=== PATIENT | male | born 1960 | race Caucasian/White ===

== ENCOUNTER 2016-10-08 03:23 | Observation (INO) ==
--- NOTE | 2016-10-08 03:29 | Emergency Department Note ---
Disposition Clinical Impression: CVA (cerebral vascular accident) Disposition: Admitted As Inpatient Condition: Good Referrals: NO,PCP [Non-Partnered Physician] - Forms: ED Satisfaction Letter General Adult HPI - General Chief complaint: ED Neuro Symptoms/Deficit Stated complaint: left arm feels funny Time Seen by Provider: 10/08/16 03:25 - Related Data Allergies Allergy/AdvReac Type Severity Reaction Status Date / Time No Known Allergies Allergy Verified 10/08/16 03:25 Course Vital Signs Temperature 98.0 F 10/08/16 03:26 Pulse Rate 104 10/08/16 03:26 Respiratory Rate 18 10/08/16 03:26 Blood Pressure 140/104 10/08/16 03:26 O2 Sat by Pulse Oximetry 95 10/08/16 03:26 Temperature 98.0 F 10/08/16 03:26 Pulse Rate 67 10/08/16 05:13 Respiratory Rate 16 10/08/16 05:13 Blood Pressure 145/100 10/08/16 05:13 O2 Sat by Pulse Oximetry 96 10/08/16 05:13 Oxygen Delivery Oxygen Delivery Room Air Medical Decision Making - Lab Data Result diagrams: 10/08/16 03:20 10/08/16 03:20 Lab Results 10/08/16 10/08/16 10/08/16 Range/Units 03:20 03:20 03:20 WBC 8.5 (4.3-11.1) K/mcL RBC 4.43 (4.19-5.50) M/mcL Hgb 14.4 (12.9-16.9) g/dL Hct 43.4 (37.5-50.1) % MCV 98.0 (83.0-100.0) fL MCH 32.5 (28.0-33.3) pg MCHC 33.2 (31.6-35.5) g/dL RDW 12.1 (11.5-14.5) % Plt Count 201 (140-400) K/mcL MPV 12.3 (9.4-12.4) fL Immature Gran % 0.5 (0-4) % Seg Neutrophils % 64.5 % Lymphocytes % 21.3 % Monocytes % 10.5 % Eosinophils % 2.6 % Basophils % 0.6 % Neutrophils # 5.5 (1.6-8.9) K/mcL Lymphocytes # 1.8 (0.6-4.6) K/mcL Monocytes # 0.9 (0.0-1.3) K/mcL Eosinophils # 0.2 (0.0-0.6) K/mcL Basophils # 0.1 (0.0-0.2) K/mcL PT 11.1 (9.4-12.1) Seconds INR 1.0 APTT 25.6 L (26.0-36.0) Seconds Sodium 139 (136-145) mEq/L Potassium 4.0 (3.5-4.5) mEq/L Chloride 105 (98-109) mEq/L Carbon Dioxide 24 (19-29) mEq/L BUN 16 (8-26) mg/dL Creatinine 0.86 (0.72-1.25) mg/dL Est GFR ( Amer) > 60 (> 60) Est GFR (Non-Af Amer) > 60 (> 60) BUN/Creatinine Ratio 19 (6-26) Glucose 79 (70-99) mg/dL POC Glucose (58-89) Calculated Osmolality 288 (280-300) Calcium 9.4 (8.6-10.8) mg/dL Troponin I (0-0.03) ng/mL 10/08/16 10/08/16 Range/Units 03:20 03:34 WBC (4.3-11.1) K/mcL RBC (4.19-5.50) M/mcL Hgb (12.9-16.9) g/dL Hct (37.5-50.1) % MCV (83.0-100.0) fL MCH (28.0-33.3) pg MCHC (31.6-35.5) g/dL RDW (11.5-14.5) % Plt Count (140-400) K/mcL MPV (9.4-12.4) fL Immature Gran % (0-4) % Seg Neutrophils % % Lymphocytes % % Monocytes % % Eosinophils % % Basophils % % Neutrophils # (1.6-8.9) K/mcL Lymphocytes # (0.6-4.6) K/mcL Monocytes # (0.0-1.3) K/mcL Eosinophils # (0.0-0.6) K/mcL Basophils # (0.0-0.2) K/mcL PT (9.4-12.1) Seconds INR APTT (26.0-36.0) Seconds Sodium (136-145) mEq/L Potassium (3.5-4.5) mEq/L Chloride (98-109) mEq/L Carbon Dioxide (19-29) mEq/L BUN (8-26) mg/dL Creatinine (0.72-1.25) mg/dL Est GFR ( Amer) (> 60) Est GFR (Non-Af Amer) (> 60) BUN/Creatinine Ratio (6-26) Glucose (70-99) mg/dL POC Glucose 91 H (58-89) Calculated Osmolality (280-300) Calcium (8.6-10.8) mg/dL Troponin I 0.00 (0-0.03) ng/mL Critical Care Time Critical Care Time: Yes Total Critical Care Time: 45 Attestation: Patient presented with acute strokelike symptoms. He required telemedicine neurology consultation. TPA considered but not recommended by the neurologist. Attestation Statement - Attestation Attestation: I examined this patient and my medical decision-making was reviewed with the HAND BINDER CUTTER/PA/Advanced Practice Nurse/Resident Physician. I agree with the documented findings, disposition and treatment plan as described except to the extent set forth below. Kidp-yc-bidw time provided Patient presents with facial droop and left upper extremity numbness that started 2 hours prior to arrival while he was watching TV. He does have an identifiable facial droop on exam. Stroke alert activated. NIH 9
--- NOTE | 2016-10-08 03:36 | Emergency Department Note ---
Disposition Clinical Impression: CVA (cerebral vascular accident) Qualifiers: CVA mechanism: unspecified Qualified Code(s): I63.9 - Cerebral infarction, unspecified Disposition: Admitted As Inpatient Condition: Good Referrals: NO,PCP [Non-Partnered Physician] - Forms: ED Satisfaction Letter Neuro HPI - General Chief Complaint: ED Neuro Symptoms/Deficit Stated Complaint: left arm feels funny Time Seen by Provider: 10/08/16 03:25 Source: patient, EMS Limitations: no limitations Nursing Notes Reviewed: Yes Vital Signs Reviewed: Yes - History of Present Illness HPI Narrative: 56-year-old male with a history of COPD presents to the emergency department with abrupt onset left arm numbness and weakness as well as facial droop. He was watching television around 1:30 AM and had acute onset symptoms. He states his face feels funny in his arm feels weak on the left. No history of CVA in the past. No history of arrhythmias. He takes no anticoagulants. Denies any history of heart disease. He continues to smoke. Denies any abrupt headache, visual changes or injuries. Denies any alcohol use. Denies any abdominal pain , nausea or vomiting. - Related Data Allergies/Adverse Reactions: Allergies Allergy/AdvReac Type Severity Reaction Status Date / Time No Known Allergies Allergy Verified 10/08/16 03:25 All systems ED: reviewed and negative except as stated. Eyes: Denies: vision change Cardiovascular: Denies: chest pain, syncope Respiratory: Denies: cough, dyspnea Gastrointestinal: Denies: abdominal pain, nausea, vomiting Musculoskeletal: Denies: back pain, neck pain Neurological: Reports: weakness, numbness. Denies: headache Past Medical History - Past Medical History Medical history: Reports: COPD, seizures Psychiatric history: Reports: no psych history - Social History Smoking Status: Current every day smoker Smokeless Tobacco Status: No Alcohol use: Reports: none Drug use: Reports: none Physical Exam General: Thin-appearing male but awake, alert and in no distress Cardiovascular: Regular rate and rhythm. S1, S2. No murmurs, rubs or gallops. Respiratory: Breath sounds clear bilaterally. No wheezing, rales or rhonchi. No resp distress Abdomen: Soft, nontender. No guarding, rebound or rigidity. Eyes: Pupils equally round and reactive to light, extraocular muscles intact, conjunctiva clear, no disconjugate gaze, nystagmus or strabismus PRIETO: Normocephalic, no signs of head injury. Neuro: Alert and oriented 3, no visual deficits, 4/5 left upper extremity strength with some neglect and decreased sensation 4/5 left lower extremity strength with some decreased sensation. 5/5 right upper and lower extremity strength. Significant left-sided facial droop without dysarthria. Forehead is spared. See NIHSS for full evaluation Musculoskeletal: No joint tenderness or swelling Skin: No lesions. No diaphoresis. Normal turgor. Normal color Psych: Appropriate - General Limitations: no limitations General appearance: alert, in no apparent distress Course - Reevaluation(s) Reevaluation #1: Patient has already been taken to CT scan, NIHSS 9 with left sided weakness and facial droop. Reevaluation #2: Received a call from [facility] neurologist and discussed the case. He will come in on the [employer] Telestroke machine. Patient back from CT scan. CT available but not read yet by radiology. I did review this and saw no obvious bleeding however he does have more atrophy than I would expect to see in a 56- year-old. Reevaluation #3: The neurologist at [facility] recommended no TPA because he is not convinced of time of onset. Patient states he had been laying on his couch since 6 PM and had not gotten up to walk or move around. The neurologist states these CVAs are painless and could have occurred before he really noticed the weakness therefore patient is outside of the TPA window and does not recommend TPA. He does however recommend a CTA of the head and neck to look for a proximal lesion that could be a candidate for percutaneous intervention. We will order this study stat. Additional Reevaluation(s): CTA of the head shows no large vessel or proximal occlusions. CTA of the neck shows right sided 50% carotid stenosis. Patient's symptoms have mildly improved with slightly less facial droop and slightly improved movement of the left arm and leg. We offered to transfer patient to [facility], stroke center but he would rather stay here in the evaluated and treated. He states he has family in this area and does not want to go to [place]. Discussed with on-call hospitalist, Dr. Stewart who accepts for admission Vital Signs Temperature 98.0 F 10/08/16 03:26 Pulse Rate 104 10/08/16 03:26 Respiratory Rate 18 10/08/16 03:26 Blood Pressure 140/104 10/08/16 03:26 O2 Sat by Pulse Oximetry 95 10/08/16 03:26 Temperature 98.0 F 10/08/16 03:26 Pulse Rate 67 10/08/16 05:13 Respiratory Rate 16 10/08/16 05:13 Blood Pressure 145/100 10/08/16 05:13 O2 Sat by Pulse Oximetry 96 10/08/16 05:13 Oxygen Delivery Oxygen Delivery Room Air Neuro Symptoms/Deficit - Lab Data Result diagrams: 10/08/16 03:20 10/08/16 03:20 Lab Results 10/08/16 10/08/16 10/08/16 Range/Units 03:20 03:20 03:20 WBC 8.5 (4.3-11.1) K/mcL RBC 4.43 (4.19-5.50) M/mcL Hgb 14.4 (12.9-16.9) g/dL Hct 43.4 (37.5-50.1) % MCV 98.0 (83.0-100.0) fL MCH 32.5 (28.0-33.3) pg MCHC 33.2 (31.6-35.5) g/dL RDW 12.1 (11.5-14.5) % Plt Count 201 (140-400) K/mcL MPV 12.3 (9.4-12.4) fL Immature Gran % 0.5 (0-4) % Seg Neutrophils % 64.5 % Lymphocytes % 21.3 % Monocytes % 10.5 % Eosinophils % 2.6 % Basophils % 0.6 % Neutrophils # 5.5 (1.6-8.9) K/mcL Lymphocytes # 1.8 (0.6-4.6) K/mcL Monocytes # 0.9 (0.0-1.3) K/mcL Eosinophils # 0.2 (0.0-0.6) K/mcL Basophils # 0.1 (0.0-0.2) K/mcL PT 11.1 (9.4-12.1) Seconds INR 1.0 APTT 25.6 L (26.0-36.0) Seconds Sodium 139 (136-145) mEq/L Potassium 4.0 (3.5-4.5) mEq/L Chloride 105 (98-109) mEq/L Carbon Dioxide 24 (19-29) mEq/L BUN 16 (8-26) mg/dL Creatinine 0.86 (0.72-1.25) mg/dL Est GFR ( Amer) > 60 (> 60) Est GFR (Non-Af Amer) > 60 (> 60) BUN/Creatinine Ratio 19 (6-26) Glucose 79 (70-99) mg/dL POC Glucose (58-89) Calculated Osmolality 288 (280-300) Calcium 9.4 (8.6-10.8) mg/dL Troponin I (0-0.03) ng/mL 10/08/16 10/08/16 Range/Units 03:20 03:34 WBC (4.3-11.1) K/mcL RBC (4.19-5.50) M/mcL Hgb (12.9-16.9) g/dL Hct (37.5-50.1) % MCV (83.0-100.0) fL MCH (28.0-33.3) pg MCHC (31.6-35.5) g/dL RDW (11.5-14.5) % Plt Count (140-400) K/mcL MPV (9.4-12.4) fL Immature Gran % (0-4) % Seg Neutrophils % % Lymphocytes % % Monocytes % % Eosinophils % % Basophils % % Neutrophils # (1.6-8.9) K/mcL Lymphocytes # (0.6-4.6) K/mcL Monocytes # (0.0-1.3) K/mcL Eosinophils # (0.0-0.6) K/mcL Basophils # (0.0-0.2) K/mcL PT (9.4-12.1) Seconds INR APTT (26.0-36.0) Seconds Sodium (136-145) mEq/L Potassium (3.5-4.5) mEq/L Chloride (98-109) mEq/L Carbon Dioxide (19-29) mEq/L BUN (8-26) mg/dL Creatinine (0.72-1.25) mg/dL Est GFR ( Amer) (> 60) Est GFR (Non-Af Amer) (> 60) BUN/Creatinine Ratio (6-26) Glucose (70-99) mg/dL POC Glucose 91 H (58-89) Calculated Osmolality (280-300) Calcium (8.6-10.8) mg/dL Troponin I 0.00 (0-0.03) ng/mL - EKG Data EKG results narrative: EKG shows a sinus rhythm with a rate of [address] elevation or depression. Intervals within normal limits. Normal axis and normal R-wave progression. No ischemic T-wave changes. Previous EKG on 11/02/2009 shows similar wave morphology NIH Stroke Scale - Level of Consciousness LOC: Alert - LOC Questions LOC Questions: Answers both correctly - LOC Commands LOC Commands: Performs both correctly - Best Gaze Best Gaze: Normal - Visual Visual: No visual loss - Facial Palsy Facial Palsy: Partial, total, or near-total paralysis of lower face - Motor Arms Motor Arm-Left: Drift, does NOT hit bed Motor Arm-Right: No drift for 10 seconds - Motor Legs Motor Leg-Left: Drift, does NOT hit bed Motor Leg-Right: No drift for 5 seconds - Limb Ataxia Limb Ataxia: Present in TWO limbs - Sensory Sensory: Mild to moderate loss, "not as sharp" - Best Language Best Language: No aphasia - Dysarthria Dysarthria: Mild, slurs some words - Extinction and Inattention Extinction and Inattention: Inattention or extinction in ONE modality - NIHSS Total Score NIHSS Total Score: 9 TPA Checklist - LKW: 3-4.5 hrs Add. Contraindications Patient/family understanding: The patient/family members have been counseled and understood the risk, benefit , and alternatives of treatment.
[2016-10-08 03:52] LABS: Basophils # 0.1 K/mcL (0.0-0.2); Basophils % 0.6 %; Eosinophils # 0.2 K/mcL (0.0-0.6); Eosinophils % 2.6 %; Hematocrit 43.4 % (37.5-50.1); Immature Granulocytes % 0.5 % (0-4); Lymphocytes # 1.8 K/mcL (0.6-4.6); Lymphocytes % 21.3 %; Mean Corpuscular HGB Conc 33.2 g/dL (31.6-35.5); Mean Corpuscular Hemoglobin 32.5 pg (28.0-33.3); Mean Platelet Volume 12.3 fL (9.4-12.4); Monocytes # 0.9 K/mcL (0.0-1.3); Monocytes % 10.5 %; Neutrophils # 5.5 K/mcL (1.6-8.9); Platelet Count 201 K/mcL (140-400); Red Blood Count 4.43 M/mcL (4.19-5.50); Red Cell Distribution Width 12.1 % (11.5-14.5); Segmented Neutrophils % 64.5 %
[2016-10-08] MEDS ORDERED: Alteplase (Activase) 6 MG in EMPTY BAG 1 EACH IVP ONE (03:54)
[2016-10-08] MEDS ORDERED: ALTEPLASE IVPB ONE (03:54)
[2016-10-08 03:55] LABS: Hemoglobin 14.4 g/dL (12.9-16.9)
[2016-10-08 04:00] LABS: Activated Partial Thrombo Time 25.6 Seconds (26.0-36.0)
[2016-10-08 04:04] LABS: BUN/Creatinine Ratio 19 (6-26); Blood Urea Nitrogen 16 mg/dL (8-26); Carbon Dioxide 24 mEq/L (19-29); Chloride 105 mEq/L (98-109); Glucose 79 mg/dL (70-99); Osmolality,Calculated 288 (280-300); Prothrombin Time 11.1 Seconds (9.4-12.1); Sodium 139 mEq/L (136-145); eGFR For African Americans > 60 (> 60); eGFR For Non-African Americans > 60 (> 60)
[2016-10-08 04:11] LABS: Calcium 9.4 mg/dL (8.6-10.8)
[2016-10-08] MEDS ORDERED: Aspirin 325 MG TABLET PO ONE (05:48)
[2016-10-08] MEDS ORDERED: Naloxone 0.4 MG/ML INJ IVP PRN (10:36)
[2016-10-08] MEDS ORDERED: Ondansetron ODT 4 MG TAB.RAPDIS SL PRN (10:36)
[2016-10-08] MEDS ORDERED: Acetaminophen 325 MG TABLET PO PRN (10:36)
--- NOTE | 2016-10-08 11:26 | Internal Med History&Physical ---
<Caryn Naik - Last Filed: 10/08/16 12:41> Date of Encounter: 10/08/16 Time of Encounter: 11:22 Assessment and Plan (1) CVA (cerebral vascular accident) Current visit: Yes Status: Acute Patient presented with left-sided weakness and left-sided facial droop. He was not a TPA candidate. Left-sided weakness has resolved, left-sided facial droop persists. CT of the head showed no acute intracranial abnormality. CTA of the head and neck showed no large vessel or proximal occlusions, right-sided 50% carotid stenosis. 325 mg of aspirin given Aspirin 81 mg daily, Lipitor 40 mg at bedtime Lipid panel with morning labs Continuous panel monitor MRI of the head and brain without contrast Echocardiogram Neurology consulted, spoke with Dr. Franco, who will see patient. Qualifiers: CVA mechanism: unspecified Qualified Code(s): I63.9 - Cerebral infarction, unspecified (2) Seizure disorder Current visit: Yes Status: Acute Patient reports he has seizures once or twice a year for the last 10 years, and takes antiepileptic medication. He does not recall his medication, we are [facility] the [facility] Patient reports last seizure was about 2 months ago. We will continue home dose of medications, seizure precautions. (3) Hypertension Current visit: Yes Status: Acute Patient's blood pressure has been running 140s to 150s over 100 since arrival. Patient reports he takes blood pressure medication, but does not recall what he takes. Here in the process of obtaining list from the [place], we will continue home doses of medications. Qualifiers: Hypertension type: essential hypertension Qualified Code(s): I10 - Essential (primary) hypertension (4) COPD (chronic obstructive pulmonary disease) Current visit: Yes Status: Chronic Patient denies any increased shortness of breath or coughing. He is not in an exacerbation. Albuterol inhaler every 4 hours when necessary Budesonide formoterol twice a day Qualifiers: COPD type: unspecified COPD Qualified Code(s): J44.9 - Chronic obstructive pulmonary disease, unspecified (5) Smoker Current visit: Yes Status: Acute Patient smokes 1PPD. Discussed smoking cessation and encouraged patient to quit. Smoking cessation education ordered. Nicotine patch ordered. (6) DVT prophylaxis Current visit: Yes Status: Acute anti-embolic stockings lovenox 40mg SQ daily Internal Medicine - H&P: HPI Chief complaint: left sided weakness Admitted From: Emergency Dept Plans for Post Hospital Care: Home History of present illness: Mr. Bassett is a 56 year old male with COPD, hypertension, and seizure disorder presented to the emergency department early this morning after developing sudden onset of left-sided weakness and facial droop. Reports that he was laying on the couch and when he went to get up he noticed that his left arm was weak, patient noted to have left arm and left leg weakness and left facial droop. He denies any headache, lightheadedness, vision changes, sensation of tingling, chest pain, palpitations, increased shortness of breath. Patient was evaluated in the emergency department and the [facility] stroke medicine team was called at [facility], they felt patient was not a TPA candidate as patient's onset could have been earlier while he was laying down and not moving for a long period prior to discovering his weakness. Labs are grossly normal troponin negative at 0.00. CT of the head showed no acute intracranial abnormality. [facility] telemedicine recommended CTA of the head and neck which showed no large vessel or proximal occlusions, and right-sided 50% carotid stenosis. On exam, patient has equal strength bilaterally, improved from his presentation at the ER. He does have a persistent left-sided facial droop. Speech is fluid, cranial nerves are intact, no pronator drift, normal Romberg. Heart has regular rate and rhythm, lungs are clear bilaterally to auscultation. Past Med Surg Social Fam HX - Past Medical History Medical history: COPD, hypertension, seizures Psychiatric history: no psych history - Past Surgical History Surgical History: no surgical history - Social History Smoking Status: Current every day smoker (40 pack year history) Smokeless Tobacco Status: No Alcohol use: none Drug use: none - Family History Mother Living Status: Age at : 83 Hx Family Cardiac Disorders: Yes Father Living Status: Age at : 66 Cause of : Cancer Hx Family Cancer: Yes Internal Medicine - H&P: Meds Albuterol Sulfate [Albuterol Inhaler] 2 puff IH Q6HR PRN 10/08/16 [History] Budesonide/Formoterol 160/4.5 [Symbicort 160/4.5] 2 puff IH BIDR 10/08/16 [ History] Cyanocobalamin (Vitamin B-12) [Vitamin B-12] 1,000 mcg SL DAILY 10/08/16 [ History] Magnesium Gluconate 250 mg PO DAILY 10/08/16 [History] Permethrin [Elimite] 1 appl TP AD PRN 10/08/16 [History] Potassium Chloride [Klor-Con 10] 20 meq PO BID 10/08/16 [History] hydrOXYzine HCl [Hydroxyzine HCl] 25 mg PO TID 10/08/16 [History] Allergies No Known Allergies Allergy (Verified 10/08/16 03:25) All Systems PM: A 10-system review of systems was performed and is negative for pertinent findings except as documented above in the HPI. - Constitutional Constitutional: no chills, no fever(s), no night sweats - EENT Eyes: no change in vision, no discharge, no pain, no photophobia Ears: no ear discharge, no ear pain, no tinnitus Nose, mouth and throat: no dysphagia, no nasal discharge, no neck pain, no sore throat - Cardiovascular Cardiovascular ROS IM: no chest pain, no diaphoresis, no dyspnea, no lightheadedness, no palpitations, no syncope - Respiratory Respiratory: no cough, no dyspnea, no wheezing, no excessive phlegm production - Gastrointestinal Gastrointestinal: no abdominal pain, no diarrhea, no hematemesis, no hematochezia, no melena, no nausea, no vomiting - Musculoskeletal Musculoskeletal ROS IM: no numbness, no tingling - Integumentary Integumentary IM: no rash, no unusual bruising - Neurological Neurological ROS: focal weakness (left sided), no confusion, no convulsions, no numbness, no tingling, no tremor(s) - Hematologic/Lymphatic Hematologic/Lymphatic: no easy bruising - Constitutional Vitals: Temp Pulse Resp BP Pulse Ox 98.2 F 79 16 140/101 98 10/08/16 07:39 10/08/16 07:39 10/08/16 07:39 10/08/16 07:39 10/08/16 07:39 General appearance: Present: A&O X 3, pleasant, no acute distress - Head Head exam: Present: atraumatic, normocephalic - Eye Eye exam: Present: PERRL, conjuntiva pink, sclera anicteric Pupils: Present: PERRL - Neck Neck exam general surgery: Present: supple, trachea midline. Absent: lymphadenopathy - Respiratory Respiratory exam: Present: CTAB. Absent: accessory muscle use, rales, rhonchi, wheezes - Cardiovascular Cardiovascular exam: Present: RRR, +S1, +S2. Absent: diastolic murmur, gallop, rubs, systolic murmur - GI/Abdominal GI/Abdominal exam: Present: normal bowel sounds, soft, no peritoneal signs. Absent: distended, tenderness - Extremities Exam Extremities exam: Present: warm, radial pulses palpable and symetrical. Absent : calf tenderness, cyanotic, pedal edema - Neurological Exam Neurological exam: Present: CN II-XII intact, oriented X3, no focal deficits, facial droop. Absent: pronater drift, speech deficit - Expanded Neurological Exam Cranial Nerves: EOM's intact PM: Normal, gag reflex PM: Normal, nystagmus PM: Normal, tongue deviation PM: Normal Cerebellar function: finger to nose: Normal, heel to pereira: Normal, Romberg: Normal Neuro motor strength exam: LUE: 5, RUE: 5, LLE: 5, RLE: 5 - Skin Skin exam: Present: dry, intact Internal Med - H&P Results - Labs CBC & Chem 7: 10/08/16 03:20 10/08/16 03:20 Labs: All Lab Results (24 Hours) 10/08/16 10/08/16 10/08/16 Range/Units 03:20 03:20 03:20 WBC 8.5 (4.3-11.1) K/mcL RBC 4.43 (4.19-5.50) M/mcL Hgb 14.4 (12.9-16.9) g/dL Hct 43.4 (37.5-50.1) % MCV 98.0 (83.0-100.0) fL MCH 32.5 (28.0-33.3) pg MCHC 33.2 (31.6-35.5) g/dL RDW 12.1 (11.5-14.5) % Plt Count 201 (140-400) K/mcL MPV 12.3 (9.4-12.4) fL Immature Gran % 0.5 (0-4) % Seg Neutrophils % 64.5 % Lymphocytes % 21.3 % Monocytes % 10.5 % Eosinophils % 2.6 % Basophils % 0.6 % Neutrophils # 5.5 (1.6-8.9) K/mcL Lymphocytes # 1.8 (0.6-4.6) K/mcL Monocytes # 0.9 (0.0-1.3) K/mcL Eosinophils # 0.2 (0.0-0.6) K/mcL Basophils # 0.1 (0.0-0.2) K/mcL PT 11.1 (9.4-12.1) Seconds INR 1.0 APTT 25.6 L (26.0-36.0) Seconds Sodium 139 (136-145) mEq/L Potassium 4.0 (3.5-4.5) mEq/L Chloride 105 (98-109) mEq/L Carbon Dioxide 24 (19-29) mEq/L BUN 16 (8-26) mg/dL Creatinine 0.86 (0.72-1.25) mg/dL Est GFR ( Amer) > 60 (> 60) Est GFR (Non-Af Amer) > 60 (> 60) BUN/Creatinine Ratio 19 (6-26) Glucose 79 (70-99) mg/dL POC Glucose (58-89) Calculated Osmolality 288 (280-300) Calcium 9.4 (8.6-10.8) mg/dL Troponin I (0-0.03) ng/mL 10/08/16 10/08/16 Range/Units 03:20 03:34 WBC (4.3-11.1) K/mcL RBC (4.19-5.50) M/mcL Hgb (12.9-16.9) g/dL Hct (37.5-50.1) % MCV (83.0-100.0) fL MCH (28.0-33.3) pg MCHC (31.6-35.5) g/dL RDW (11.5-14.5) % Plt Count (140-400) K/mcL MPV (9.4-12.4) fL Immature Gran % (0-4) % Seg Neutrophils % % Lymphocytes % % Monocytes % % Eosinophils % % Basophils % % Neutrophils # (1.6-8.9) K/mcL Lymphocytes # (0.6-4.6) K/mcL Monocytes # (0.0-1.3) K/mcL Eosinophils # (0.0-0.6) K/mcL Basophils # (0.0-0.2) K/mcL PT (9.4-12.1) Seconds INR APTT (26.0-36.0) Seconds Sodium (136-145) mEq/L Potassium (3.5-4.5) mEq/L Chloride (98-109) mEq/L Carbon Dioxide (19-29) mEq/L BUN (8-26) mg/dL Creatinine (0.72-1.25) mg/dL Est GFR ( Amer) (> 60) Est GFR (Non-Af Amer) (> 60) BUN/Creatinine Ratio (6-26) Glucose (70-99) mg/dL POC Glucose 91 H (58-89) Calculated Osmolality (280-300) Calcium (8.6-10.8) mg/dL Troponin I 0.00 (0-0.03) ng/mL - Diagnostic Studies CT scan - head Additional comments: Head CT 10/08/16 03:25 IMPRESSION: No acute intracranial abnormality. D/ / Luis Ma MD / Luis Ma MD Interpreting Provider: Luis Ma MD Head CTA 10/08/16 04:05 IMPRESSION: 1. Negative CTA for emergent large vessel occlusion. No high-grade or correctable stenosis identified. 2. Scattered atheromatous plaque within the cavernous ICAs without flow limiting stenosis. D/ / Oz Bo MD / Oz Bo MD Interpreting Provider: Oz Bo MD Neck CTA 10/08/16 04:05 IMPRESSION: 1. Atheromatous plaque about the right carotid bifurcation with associated stenosis of up 50% stenosis by NASCET criteria. 2. Mild atheromatous plaque about the left carotid bifurcation without significant stenosis. 3. Widely patent vertebral arteries within the neck without stenosis or other acute abnormality. 4. Emphysema. D/ / Oz Bo MD / Oz Bo MD Interpreting Provider: Oz Bo MD <Isak Peterson - Last Filed: 10/08/16 13:30> Date of Encounter: 10/08/16 Internal Medicine - H&P: HPI History of present illness: Mr. Bassett is a 56 year old male All Systems PM: A 10-system review of systems was performed and is negative for pertinent findings except as documented above in the HPI. - Constitutional Vitals: Temp Pulse Resp BP Pulse Ox 97.8 F 62 16 140/98 95 10/08/16 11:38 10/08/16 11:38 10/08/16 11:38 10/08/16 11:38 10/08/16 11:38 Internal Med - H&P Results - Labs CBC & Chem 7: 10/08/16 03:20 10/08/16 03:20 - Attending Attestation I examined this patient and my medical decision-making was reviewed with the Advanced Practice Nurse. I agree with the documented findings, disposition and treatment plan as described except to the extent set forth below. Patient presented with left upper extremity weakness that started last night, he described it as weakness associated with jerky involuntary movements of his left arm. Now his strength is equal, his neuro exam is nonfocal. CT of the head and CT angiogram of the head and neck showed no acute findings. We will obtain MRI of the brain. Consult neurology. Frequent neurochecks. PT OT evaluation.
[2016-10-08] MEDS: Nicotine 21 MG PATCH.TD24 TD SCH (12:00)
--- NOTE | 2016-10-08 12:34 | Neurology - Consult Note ---
Date of Encounter: 10/08/16 Time of Encounter: 12:31 Assessment and Plan (1) CVA (cerebral vascular accident) Current Visit: Yes Status: Acute Patient has acute onset of left sided paresis involving the face and left arm, without significant speech difficulty, no mental status changes, mainly mild weakness, likely we are dealing with pure motor lacunar infarct at the supra- tentorium. Continue Aspirin 325mg daily complete stroke work up MRI of brain, carotid artery duplex and echocardiography. also had CTA of neck and result reviewed. Qualifiers: CVA mechanism: unspecified Qualified Code(s): I63.9 - Cerebral infarction, unspecified (2) Seizure disorder Current Visit: Yes Status: Acute Patient can be followed up in neurology clinic after discharge for his seizure disorder. Continue recurrent antiepileptic regimen (3) Right-sided carotid artery disease Current Visit: Yes Status: Acute roughly 50% right ICA stenosis on CTA of neck. Continue Aspirin 325mg daily. Needs annual carotid artery duplex follow up History of Present Illness Chief complaint: left sided weakkness HPI: Mr. Bassett is a 56 year old male with PMH significant for HTN, COPD, seizure disorder who developed acute onset of left facial droop and left sided weakness, involving mainly to the left arm. He feels funny to the left side, discussed with the [facility] telemedicine which decided him not to be a candidate for tPA. CT of head showed no acute intracranial abnormality. Patient is admitted for stroke work up. At this time, patient is mostly asymptomatic, except he still feels the left hand is subtly weak. Started aspirin 325mg daily. Denies headache, no fever. Past Med Surg Social Fam HX - Past Medical History Medical history: COPD, hypertension, seizures Psychiatric history: no psych history - Past Surgical History Surgical History: no surgical history - Social History Smoking Status: Current every day smoker (40 pack year history) Smokeless Tobacco Status: No Alcohol use: none Drug use: none - Family History Mother Living Status: Age at : 83 Hx Family Cardiac Disorders: Yes Father Living Status: Age at : 66 Cause of : Cancer Hx Family Cancer: Yes Medications and Allergies Albuterol Sulfate [Albuterol Inhaler] 2 puff IH Q6HR PRN 10/08/16 [History] Budesonide/Formoterol 160/4.5 [Symbicort 160/4.5] 2 puff IH BIDR 10/08/16 [ History] Cyanocobalamin (Vitamin B-12) [Vitamin B-12] 1,000 mcg SL DAILY 10/08/16 [ History] Magnesium Gluconate 250 mg PO DAILY 10/08/16 [History] Permethrin [Elimite] 1 appl TP AD PRN 10/08/16 [History] Potassium Chloride [Klor-Con 10] 20 meq PO BID 10/08/16 [History] hydrOXYzine HCl [Hydroxyzine HCl] 25 mg PO TID 10/08/16 [History] Allergies No Known Allergies Allergy (Verified 10/08/16 03:25) All Systems: A 10-system review of systems was performed and is negative for pertinent findings except as documented above in the HPI. Physical Examination - Vital Signs Vital Signs: Initial Vital Signs Temp Pulse Resp BP Pulse Ox 98.0 F 104 18 140/104 95 10/08/16 03:26 10/08/16 03:26 10/08/16 03:26 10/08/16 03:26 10/08/16 03:26 - Constitutional General appearance: comfortable - Neurologic Sensorimotor examination: intact Detailed motor examination: grossly full strength in all extremities Motor examination - right side: 5/5: deltoids, biceps, triceps, wrist flexion, wrist extension, alpine guide, hip flexors, tibialis Anterior, quadriceps, toe extension (EHL), plantarflexion Motor examination - left side: 5/5: deltoids, biceps, triceps, wrist flexion, wrist extension, hip flexors, alpine guide, quadriceps, tibialis Anterior, toe extension (EHL), plantarflexion Detailed sensory examination: intact Reflex and gait examination: intact Reflexes: Biceps: 1+, Triceps: 1+, Brachioradialis: 1+, Patella: 1+, Achilles: 1 + Mental Status Examination: awake, alert, oriented to person, oriented to place, oriented to time, follows commands appropriately, answers questions appropriately, no agnosia, no aphasia, no aproxia Cranial nerve examination: PERRL, EOMI, visual gibson intact, corneal reflexes brisk symmetrically, sensory to face intact, mastication intact, no facial asymmetry is present (slight facial droop noted to the left side), no dysarthria , hearing is intact symmetrically, soft palate elevates bilaterally upon phonation, gag reflex intact, flexes SCM and trapezius muscles symmetrically with full power, tongue protrudes midline, no atrophy or facial fasiculations present Results - Laboratory Findings CBC and BMP: 10/08/16 03:20 10/08/16 03:20 Abnormal lab findings: Abnormal lab results APTT 25.6 Seconds (26.0-36.0) L 10/08/16 03:20 POC Glucose 91 (58-89) H 10/08/16 03:34 Consult Discharge Plan - Plan [facility]errals: [facility] [Primary Care Provider] -
--- NOTE | 2016-10-08 15:06 | Electrocardiograph Report ---
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
--- NOTE | 2016-10-08 15:12 | Electrocardiograph Report ---
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
[2016-10-08] MEDS ORDERED: amLODIPine 5 MG TABLET PO SCH (18:45)
[2016-10-08] MEDS: Budesonide/Formoterol 160/4.5 MDI IH SCH (19:48)
[2016-10-08] MEDS: levETIRAcetam 250 MG TABLET PO SCH (20:10)
[2016-10-08] MEDS: Losartan/HCTZ 50-12.5 TABLET PO SCH (20:11)
[2016-10-09] MEDS: levETIRAcetam 250 MG TABLET PO SCH (06:53)
[2016-10-09 06:55] VITALS: BP 117/87
[2016-10-09] MEDS ORDERED: *HR* Enoxaparin 40 MG/0.4 ML SYRINGE SQ SCH (07:00)
--- NOTE | 2016-10-09 08:26 | Internal Med Progress Note ---
Date of Encounter: 10/09/16 Time of Encounter: 08:25 - Assessment and plan (1) CVA (cerebral vascular accident) Current Visit: Yes Status: Acute Qualifiers: CVA mechanism: unspecified Qualified Code(s): I63.9 - Cerebral infarction, unspecified (2) Seizure disorder Current Visit: Yes Status: Acute (3) Hypertension Current Visit: Yes Status: Acute Qualifiers: Hypertension type: essential hypertension Qualified Code(s): I10 - Essential (primary) hypertension (4) COPD (chronic obstructive pulmonary disease) Current Visit: Yes Status: Chronic Qualifiers: COPD type: unspecified COPD Qualified Code(s): J44.9 - Chronic obstructive pulmonary disease, unspecified (5) Smoker Current Visit: Yes Status: Acute (6) DVT prophylaxis Current Visit: Yes Status: Acute (7) Right-sided carotid artery disease Current Visit: Yes Status: Acute - Subjective Interval history: Mr. Bassett a 56-year-old male presented last evening with stroke like symptoms. Mr. Bassett is alert awake oriented interactive in no acute distress this morning and he has no complaints. He says that his left-sided numbness and weakness in discoordination of his left upper extremity has completely resolved. He is eating breakfast without coughing or choking he denies any trouble with coordination between transferring food from his plate to his mouth. He denies any blurry vision, lightheadedness, trouble with visual gibson, chest pain, shortness of breath, palpitations or any history of palpitations. He denies any abdominal pain nausea vomiting diarrhea constipation. He feels back to his normal self otherwise. He is moving all 4 limbs and feels that he has appropriate strength and regain of his original abilities. - Constitutional Vitals: Temp Pulse Resp BP Pulse Ox 97.7 F 72 16 117/87 97 10/09/16 07:00 10/09/16 07:00 10/09/16 07:00 10/09/16 07:00 10/09/16 06:53 General appearance: Present: A&O X 3, pleasant, no acute distress Internal Medicine: Result - Labs CBC & Chem 7: 10/09/16 08:20 10/09/16 08:20 - ABG Interpretation ABG results: PT/INR, D-dimer PT 11.1 Seconds (9.4-12.1) 10/08/16 03:20 - Impressions Impressions Brain MRI 10/08/16 11:31 IMPRESSION: 1. Acute small volume cortical ischemic infarct involving the posterior right insula and adjacent posterolateral right frontal lobe. 2. No intracranial hemorrhage or mass effect. 3. Diffuse parenchymal volume loss somewhat greater than expected for patient's age. D/ / Bhaskar White MD / Bhaskar White MD Interpreting Provider: Bhaskar White MD - VTE Documentation of Mechanical Device: Graduated compression elastic hosiery Consult Discharge Plan - Plan [facility]errals: [facility] [Primary Care Provider] -
[2016-10-09 08:34] LABS: Basophils # 0.1 K/mcL (0.0-0.2); Basophils % 0.8 %; Eosinophils # 0.4 K/mcL (0.0-0.6); Eosinophils % 4.6 %; Hematocrit 42.7 % (37.5-50.1); Hemoglobin 14.2 g/dL (12.9-16.9); Immature Granulocytes % 0.4 % (0-4); Lymphocytes # 1.7 K/mcL (0.6-4.6); Lymphocytes % 21.4 %; Mean Corpuscular HGB Conc 33.3 g/dL (31.6-35.5); Mean Corpuscular Hemoglobin 32.1 pg (28.0-33.3); Mean Corpuscular Volume 96.4 fL (83.0-100.0); Monocytes # 0.8 K/mcL (0.0-1.3); Monocytes % 9.4 %; Neutrophils # 5.1 K/mcL (1.6-8.9); Platelet Count 186 K/mcL (140-400); Red Blood Count 4.43 M/mcL (4.19-5.50); Red Cell Distribution Width 12.2 % (11.5-14.5); Segmented Neutrophils % 63.4 %
[2016-10-09 08:49] LABS: BUN/Creatinine Ratio 20 (6-26); Blood Urea Nitrogen 14 mg/dL (8-26); Calcium 8.9 mg/dL (8.6-10.8); Carbon Dioxide 24 mEq/L (19-29); Chloride 104 mEq/L (98-109); Chol/HDL Ratio 5.6 (0-4.9); Cholesterol 196 mg/dL (< 200); Glucose 86 mg/dL (70-99); HDL Cholesterol 35 mg/dL (40-59); LDL Cholesterol,Calculated 142 mg/dL (0-99); Osmolality,Calculated 282 (280-300); Potassium 3.6 mEq/L (3.5-4.5); Sodium 136 mEq/L (136-145); Triglycerides 97 mg/dL (< 150); eGFR For African Americans > 60 (> 60); eGFR For Non-African Americans > 60 (> 60)
[2016-10-09] MEDS ORDERED: Aspirin 81 MG TAB.CHEW PO SCH (09:00)
[2016-10-09] MEDS: Losartan/HCTZ 50-12.5 TABLET PO SCH (09:44)
[2016-10-09] MEDS: Nicotine 21 MG PATCH.TD24 TD SCH (09:44)
--- NOTE | 2016-10-09 10:30 | Neurology Progress Note ---
Date of Encounter: 10/09/16 Time of Encounter: 10:22 Assessment and Plan (1) CVA (cerebral vascular accident) Current Visit: Yes Status: Acute Patient developed acute cerebral ischemic infarct, involving the right insula cortex. CTA of neck showed about 50% right ICA stenosis which requires intermediate teacher serial monitoring. Patient should follow up with vascular surgery to monitor disease progression. May become a candidate for right carotid artery endarterectomy in the future. Await TTE results. So far no evidence of significant cardiac dysarrhythmia, especially no evidence of atrial fibrillation. The presence of insula cortex stroke concerns for embolic etiology and a NIDU would be optimal. If this can not be done over the weekend then patient can be made to follow up with cardiology for outpatient INDU. Continue aspirin 325mg daily and statin therapy. Risk factor reduction for CVA. Qualifiers: CVA mechanism: unspecified Qualified Code(s): I63.9 - Cerebral infarction, unspecified (2) Seizure disorder Current Visit: Yes Status: Acute No acute issues at present time. Continue current antiepileptic regimen (3) Right-sided carotid artery disease Current Visit: Yes Status: Acute Subjective Principal diagnosis: CVA Interval history: Patient seen and examined. HE is doing well, no significant complaints at present time. MRI of brain images reviewed, showing acute ischemic infarct involving the right insula cortex area. No hemorrhage noted. CTA of neck showed right ICA 50% stenosis. Waiting for echocardiography. Objective - Constitutional Vitals: Temp Pulse Resp BP Pulse Ox 97.7 F 72 16 117/87 97 10/09/16 07:00 10/09/16 07:00 10/09/16 07:00 10/09/16 07:00 10/09/16 06:53 - Neurological Exam Sensorimotor examination: Present: intact Motor Examination: Present: grossly full strength in all extremities Motor examination - left side: 5/5: deltoids, biceps, triceps, wrist flexion, wrist extension, hip flexors, manpower development specialist manager, quadriceps, tibialis Anterior, toe extension (EHL), plantarflexion Sensation intact: Present: intact Reflex and gait examination: intact Mental Status Examination: Present: awake, alert, oriented to person, oriented to place, oriented to time, follows commands appropriately, answers questions appropriately, no agnosia, no aphasia, no aproxia Cranial nerve examination: Present: PERRL, EOMI, visual gibson intact, corneal reflexes brisk symmetrically, sensory to face intact, mastication intact, no facial asymmetry is present (slight facial droop noted to the left side), no dysarthria, hearing is intact symmetrically, soft palate elevates bilaterally upon phonation, gag reflex intact, flexes SCM and trapezius muscles symmetrically with full power, tongue protrudes midline, no atrophy or facial fasiculations present - VTE Documentation of Mechanical Device: Graduated compression elastic hosiery Results - Laboratory Findings CBC and BMP: 10/09/16 08:20 10/09/16 08:20 Abnormal lab findings: Abnormal lab results APTT 25.6 Seconds (26.0-36.0) L 10/08/16 03:20 Creatinine 0.69 mg/dL (0.72-1.25) L 10/09/16 08:20 POC Glucose 91 (58-89) H 10/08/16 03:34 LDL Cholesterol, Calc 142 mg/dL (0-99) H 10/09/16 08:20 HDL Cholesterol 35 mg/dL (40-59) L 10/09/16 08:20 Cholesterol/HDL Ratio 5.6 (0-4.9) H 10/09/16 08:20 Consult Discharge Plan - Plan [facility]errals: [facility] [Primary Care Provider] -
[2016-10-09] MEDS: Budesonide/Formoterol 160/4.5 MDI IH SCH (10:53)
--- NOTE | 2016-10-09 10:56 | Discharge Summary ---
<Danny Sexton - Last Filed: 10/09/16 15:22> Date of Encounter: 10/09/16 Time of Encounter: 10:53 - Discharge Diagnosis (1) CVA (cerebral vascular accident) Priority: Primary Status: Acute Qualifiers: CVA mechanism: unspecified Qualified Code(s): I63.9 - Cerebral infarction, unspecified (2) Seizure disorder Priority: Primary Status: Acute (3) Hypertension Priority: Primary Status: Acute Qualifiers: Hypertension type: essential hypertension Qualified Code(s): I10 - Essential (primary) hypertension (4) COPD (chronic obstructive pulmonary disease) Priority: Primary Status: Chronic Qualifiers: COPD type: unspecified COPD Qualified Code(s): J44.9 - Chronic obstructive pulmonary disease, unspecified (5) Smoker Priority: Primary Status: Acute (6) DVT prophylaxis Priority: Secondary Status: Acute (7) Right-sided carotid artery disease Priority: Primary Status: Acute - Discharge Medications Prescriptions: levETIRAcetam [Keppra] 500 mg PO Q12HR #120 tablet Aspirin 325 mg PO DAILY #30 tablet Atorvastatin [Lipitor] 40 mg PO HS #30 tablet Home Medications: Albuterol Sulfate [Albuterol Inhaler] 2 puff IH Q6HR PRN 10/08/16 [History] Budesonide/Formoterol 160/4.5 [Symbicort 160/4.5] 2 puff IH BIDR 10/08/16 [ History] Cyanocobalamin (Vitamin B-12) [Vitamin B-12] 1,000 mcg SL DAILY 10/08/16 [ History] Magnesium Gluconate 250 mg PO DAILY 10/08/16 [History] Permethrin [Elimite] 1 appl TP AD PRN 10/08/16 [History] Phenytoin ER [Dilantin ER] 400 mg PO DAILY 10/08/16 [History] Potassium Chloride [Klor-Con 10] 20 meq PO BID 10/08/16 [History] hydrOXYzine HCl [Hydroxyzine HCl] 25 mg PO TID 10/08/16 [History] Aspirin 325 mg PO DAILY #30 tablet 10/09/16 [Rx] Atorvastatin [Lipitor] 40 mg PO HS #30 tablet 10/09/16 [Rx] levETIRAcetam [Keppra] 500 mg PO Q12HR #120 tablet 10/09/16 [Rx] Allergies/Adverse Reactions: Allergies No Known Allergies Allergy (Verified 10/08/16 03:25) Procedures/tests Complete & Pending: Procedures Performed prior 72 hours Category Date Time Status MR head/brain wo con [MR] Routine MRI 10/08/16 11:31 Completed ECG 12 lead ECG [ECG] Routine Y 10/08/16 03:52 Completed ECG 12 lead ECG [ECG] Routine Y 10/08/16 12:39 Completed EV echocardiogram Routine Y 10/08/16 10:39 Completed Date of admission: 10/08/16 06:15 [facility] care physician: [facility] Consults: 10/08/16 07:43 Consult to Speech Therapy [CONS] Routine Comment: Evaluate, develop and implement POC Reason for Consult: suspected cva. failed nursing dysphagia screening. facial asymmetry Call Completed: No 10/08/16 08:18 Consult to Qa Automation Engineer [CONS] Routine Reason for SW Consult: POSSIBLE REHAB DUE TO STROKE 10/08/16 10:37 Consult to Occupational Therapy [CONS] Routine Comment: Evaluate, develop and implement POC Reason for Consult: left sided weakness Consult to Physical Therapy [CONS] Routine Comment: Evaluate, develop and implement POC Reason for Consult: left sided weakness 10/08/16 11:14 Consult to Neurology [CONS] Routine Consulting Provider: [facility] Reason for Consult: 56M with new onset left sided facial droop and left sided weakness. weakness resolved, facial droop persists. CT head negative. history of seizure disorder. Call Completed: Yes Discharging clinician: Danny Sexton Anticipated date of discharge: 10/09/16 - Patient Status Disposition: Home, Self-Care Condition: Good Functional capacity at discharge: independent ambulation Overall status at discharge: patient is progressing back to baseline - Discharge Instructions Instructions: Peripheral Vascular Disorders (DC), Chronic Obstructive Pulmonary Disease (DC), Ischemic Stroke (DC), Ischemic Stroke (GEN), Chronic Hypertension (DC) Follow Up With: Andrés Calderon MD [Partnered Physician] - [facility],PCP [Primary Care Provider] - 10/15/16 1:30 pm Alexis Franco MD [Partnered Physician] - Additional Instructions: Follow up with Neurology Dr. Franco's office in two weeks. 1. Follow-up with your primary care provider in the next 3-5 days 2. Take all prescriptions as prescribed, any concerns or questions contact her primary care provider. 3. Return to the emergency department if: Recurrence of numbness, tingling, paralysis, weakness, facial droop, trouble with speech, or any other concerning medical signs or symptoms. 4. Follow-up with cardiology patientl may require Holter monitor. - Diet and Activity Activity: as per physical therapy Diet: low fat, low cholesterol Interval History: Mr. Bassett 56-year-old male with a history of COPD, hypertension, seizure disorder, current every day smoker with a [id number] history presented with left facial droop, left arm and leg weakness and numbness. He was evaluated in the emergency department and was not a TPA candidate. He underwent stroke workup was found to have 50% carotid stenosis on the right side with CTA of the head and neck. CT of the head showed no acute intracranial abnormalities. He was started on 325 mg of aspirin, Lipitor 40 mg at bedtime, an MRI of the brain was ordered and demonstrated acute small-volume cortical ischemia infarct, involving the posterior right insula and adjacent posterior lateral right frontal lobes. No intracranial hemorrhaging or mass effect. Diffuse parenchymal volume loss somewhat greater than expected for patient's age. An echocardiogram was performed demonstrating LVEF of 60-65%, normal left ventricular chamber size, wall thickness and function. Mild left ventricular diastolic dysfunction. Mild dilated right ventricular normal function. No evidence of PFO and agitated saline contrast. Unable to estimate RVSP. No valvular dysfunction. Neurology was consult to evaluate the patient. Overnight the patient's left facial droop resolved, patient's symptoms of left- sided weakness discoordination and numbness resolved. The patient was feeling back to his normal self on 10/09/2016 upon evaluation the morning. He was seen by physical therapy, occupational therapy and speech therapy, he did not require any recommendations from physical therapy or occupational therapy and speech therapy says no treatment was warranted at this time. He is seen and evaluated the patient bedside and deemed stable for discharge home with close follow-up with his primary care provider, neurology in 2 weeks and referral to cardiology for Holter monitor. Hospital course: Mr. Bassett is a 56 year old male - Time Spent with Patient Total time spent providing and/or coordinating discharge services: - Constitutional Vitals: Temp Pulse Resp BP Pulse Ox 97.7 F 72 16 117/87 97 10/09/16 07:00 10/09/16 07:00 10/09/16 07:00 10/09/16 07:00 10/09/16 06:53 General appearance: Present: A&O X 3, pleasant, no acute distress Exam: General: Patient alert, awake, oriented 3, interactive, in no acute distress HEENT: Normocephalic, atraumatic, pupils equal reactive to light, nasal cavity patent and open septum median position, oral mucosa moist, uvula midline, neck supple trachea midline no palpable lymphadenopathy, no thyromegaly. Chest: Symmetric bilateral correlating with respiratory effort, effort nonlabored. Cardiac: Regular rate and rhythm, positive S1, S2, no bruits appreciated bilateral carotids, Radial pulses 2+ bilateral, posterior tibial and dorsal pedal pulses 2+ bilateral. Respiratory: Clear to auscultation all lung gibson Abdomen: Soft, nontender, positive bowel sounds, no palpable masses appreciated on examination Extremities: Symmetric bilateral, no erythema or edema, patient moving all 4 extremities spontaneously. Neurologic: No focal deficits appreciated on examination. EOMI intact, pupils equal reactive to light bilaterally, cranial nerves II through XII intact, sensation is intact in upper and lower extremities, coordination intact, deep tendon reflexes in patellar, brachial and Achilles symmetric and 2+ bilateral. Face symmetric, muscle strength symmetric bilateral upper and lower extremities. - VTE Documentation of Mechanical Device: Graduated compression elastic hosiery <Millie Mcelroy E - Last Filed: 10/09/16 16:09> Date of Encounter: 10/09/16 Procedures/tests Complete & Pending: Procedures Performed prior 72 hours Category Date Time Status MR head/brain wo con [MR] Routine MRI 10/08/16 11:31 Completed ECG 12 lead ECG [ECG] Routine Y 10/08/16 03:52 Completed ECG 12 lead ECG [ECG] Routine Y 10/08/16 12:39 Completed EV echocardiogram Routine Y 10/08/16 10:39 Completed Date of admission: 10/08/16 06:15 Primary care physician: [facility] Consults: 10/08/16 07:43 Consult to Speech Therapy [CONS] Routine Comment: Evaluate, develop and implement POC Reason for Consult: suspected cva. failed nursing dysphagia screening. facial asymmetry Call Completed: No 10/08/16 08:18 Consult to Qa Automation Engineer [CONS] Routine Reason for SW Consult: POSSIBLE REHAB DUE TO STROKE 10/08/16 10:37 Consult to Occupational Therapy [CONS] Routine Comment: Evaluate, develop and implement POC Reason for Consult: left sided weakness Consult to Physical Therapy [CONS] Routine Comment: Evaluate, develop and implement POC Reason for Consult: left sided weakness 10/08/16 11:14 Consult to Neurology [CONS] Routine Consulting Provider: [facility] Reason for Consult: 56M with new onset left sided facial droop and left sided weakness. weakness resolved, facial droop persists. CT head negative. history of seizure disorder. Call Completed: Yes Hospital course: Mr. Bassett is a 56 year old male - Time Spent with Patient Total time spent providing and/or coordinating discharge services: - Constitutional Vitals: Temp Pulse Resp BP Pulse Ox 97.7 F 72 16 117/87 96 10/09/16 07:00 10/09/16 07:00 10/09/16 10:53 10/09/16 10:53 10/09/16 10:53 - Attending Attestation I examined this patient and reviewed laboratory, imaging and all diagnostic data. My medical decision-making was reviewed with Dr Miguel Sexton - Resident Physician. I agree with the documented findings, disposition and treatment plan as described above.
[2016-10-10] MEDS ORDERED: Aspirin 325 MG TABLET PO SCH (09:00)
== END 2016-10-09 14:55 | disposition home or self-care (01) ==
LOC: EMEROO 03:23 → 2NENU 03:23 → SUATTDRO 06:15 → 2NENU 07:00
PROVIDERS: ADMIT Internal Medicine; ATTEND Internal Medicine